=== PATIENT | male | born 1990 | race Caucasian/White ===

== ENCOUNTER 2021-06-23 21:51 | Emergency (ER) | payer MEDICAID, SELFPAY ==
[2021-06-23 21:52] VITALS: BP 126/90; PULSE 113; RESP 14; TEMP 36.2; O2SAT 98; BMI 19.1
--- NOTE | 2021-06-23 23:43 | EDS_ITS ---
HPI History of Present Illness Chief Complaint: Ear Problem Informant: patient Onset/Context/Timing Onset: Today Context: Gradual Onset Timing: Continuous Quality: Dull Location: Left ear Worsened by: Nothing Relieved by: Nothing Narrative Narrative: Patient presents with left ear discomfort that began tonight. Patient states he was cleaning his ears out with peroxide and a Q-tip. Patient states that when he pulled the Q-tip out he noted something red on the end of the Q-tip that was moving. Patient thought it was a bug. Patient is concerned that the bug laid eggs into his ear canal. Patient denies any hearing changes. Patient admits to some dull pain in his left ear. Patient denies any fevers or chills. PFSH PFSH no medical history no surgical history Social History Smoking Status: Unknown if ever smoked ROS ROS ED Constitutional Constitutional ED: Denies chills or fever(s) Eyes Eyes: Denies blurry vision or change in vision ENT ENT ED: Reports ear pain left; Denies rhinorrhea or sore throat Cardiovascular Cardiovascular: Denies chest pain or palpitations Respiratory/Chest Respiratory/Chest: Denies cough or dyspnea Gastrointestinal Gastrointestinal: Denies nausea or vomiting Genitourinary Genitourinary ED: Denies dysuria or hematuria Musculoskeletal Musculoskeletal: Denies back pain or neck pain Integumentary Denies abscess or rash Neurologic Neurologic: Denies headache(s) or weakness Allergic/Immunologic Allergic/Immunologic ED: Denies mouth swelling or urticaria EXAM Physical Exam Const Vital Signs: 06/23/21 21:52 Temperature 97.2 F L Temperature Source Temporal Pulse Rate 113 H Respiratory Rate 14 Blood Pressure 126/90 H Blood Pressure Mean 102 Pulse Ox 98 Oxygen Delivery Method Room Air Positive well nourished and well developed General Appearance ED: well developed HEENT Reports moist mucous membranes HEENT Narrative: There is a cerumen impaction noted on the left. The right external auditory canal and tympanic membrane are clear. Neck supple and no JVD Resp normal respiratory effort and clear to auscultation bilaterally Cardio regular rate and regular rhythm Neuro oriented x3, CN's II-XII intact bilaterally and no sensory deficits noted Sensorium / Orientation: alert Motor Exam: strength 5/5 throughout Psych mental status grossly normal MDM MDM MDM Narrative Medical decision making narrative: The left ear was irrigated. Patient tolerated procedure well. There is some mild inflammation of the external auditory canal after irrigation. The tympanic membrane was clear. Patient was instructed to avoid using Q-tips in his ear. Patient was instructed to follow- up with his primary care physician in 7 to 10 days. Patient understood and was agreeable with the plan. All questions were answered. Discharge Plan Triage Chief Complaint: Ear Problem ED Provider: Tremaine Miranda Dx/Rx/DC Orders Clinical Impression: Impacted cerumen of left ear Instructions: ED Cerumen Impaction Treated Primary Care Provider: Care Physician,No Primary Referrals: Nevin Montes De Oca DO [STAFF PHYSICIAN] - 5-7 Days Care Physician,No Primary [Primary Care Provider] - Disposition Disposition: Home, Self Care
== END 2021-06-23 23:54 | disposition home or self-care (01) ==
PROVIDERS: Emergency Provider Emergency Medicine
DX: H61.22 Impacted cerumen, left ear (principal)
CPT/HCPCS: 69209; 10120; 99283